=== PATIENT | female | born 1975 | race Caucasian/White ===

== ENCOUNTER 2016-11-05 11:56 | Emergency (ER) | payer BC ==
[~2016-11-05] VITALS: Ht 165.1 cm; Wt 106.8 kg
[~2016-11-05 11:56] MED LIST: CELEXA 20MG20 MG/TAB PO; CYMBALTA 60MG60 MG PO; DAILY MULTIPLE1 T18 PO; MOTRIN 600600 MG/TAB PO; PERCOCET 325 MG1 TA2 PO; PREVACID 30MG30 M1 PO; ZESTRIL; symbalta
[2016-11-05 11:57] VITALS: BP 154/83; TEMP 98.4
[2016-11-05] MEDS ORDERED: ZOLOFT 50MG50 MG PO (12:43)
[2016-11-05] MEDS ORDERED: FERROUS SULFATE65 MG PO (12:44)
[2016-11-05] MEDS ORDERED: MICROGESTIN 1.51 TAB PO (12:44)
[2016-11-05] MEDS ORDERED: VTAMINC250TA PO (12:44)
[2016-11-05 13:18] LABS: BASO # 0.1 (0.0-0.2); BASO % 0.5 % (0.0-2.0); EOS # 0.2 (0.0-0.7); EOS % 1.3 % (0-4.0); GRAN # 9.3 (1.4-6.5); GRAN % 72.4 % (42.2-75.2); HEMATOCRIT 41.5 % (37.0-47.0); HEMOGLOBIN 13.4 g/dl (12.5-16.0); LYMPH # 2.6 (1.2-3.4); LYMPH % 20.5 % (20.0-51.0); MEAN CELL VOLUME 79 fl (80.0-100.0); MEAN CORPUSCULAR HEMOGLOBIN 26 pg (27.0-31.0); MEAN CORPUSCULAR HGB CONC 32 g/dl (33.0-37.0); MEAN PLATELET VOLUME 8.6 fl (7.4-10.4); MONO # 0.6 (0.1-0.6); MONO % 4.8 % (1.7-9.3); PLATELET COUNT 344 K/mm3 (130-400); RED BLOOD COUNT 5.26 M/mm3 (4.10-5.30); REDCELL DISTRIBUTION WIDTH-CV 18.1 % (11.5-14.5); WHITE BLOOD COUNT 12.9 K/mm3 (4.8-10.8)
[2016-11-05 13:23] LABS: ADJUSTED CALCIUM 8.8 mg/dL (8.4-10.2); BILIRUBIN,TOTAL 0.9 mg/dL (0.0-1.0); CALCIUM 8.8 mg/dL (8.4-10.2); CREATININE, serum 0.65 mg/dL (0.52-1.25); PH 6 (5-8); POTASSIUM 3.7 mmol/L (3.4-5.0); TOTAL PROTEIN 7.7 gm/dL (6.4-8.2); URINE APPEARANCE Hazy; URINE BACTERIA None Seen /hpf; URINE BILIRUBIN Negative (NEGATIVE); URINE BLOOD 2+ (NEGATIVE); URINE COLOR Yellow; URINE GLUCOSE Negative (NEGATIVE); URINE KETONE Negative (NEGATIVE); URINE UROBILINOGEN Negative (NEGATIVE)
[2016-11-05] MEDS ORDERED: MACROBID 1100 MG/CAP PO (14:09)
[2016-11-05] MEDS ORDERED: FLEXERIL 1010 MG/TAB PO (14:09)
[2016-11-05 14:57] VITALS: PULSE 74
== END 2016-11-05 14:58 | disposition home or self-care (01) ==
LOC: COL.ER 11:56
PROVIDERS: Nurse Practitioner
DX: N39.0 Urinary tract infection, site not specified (principal); M79.1 Myalgia; Z87.442 Personal history of urinary calculi
CPT/HCPCS: J1885; J3360

== ENCOUNTER 2017-09-17 00:51 | Emergency (ER) | payer BC ==
[~2017-09-17 00:51] MED LIST changes: +FERROUS SULFATE65 MG PO; +FLEXERIL 1010 MG/TAB PO; +MACROBID 1100 MG/CAP PO; +MICROGESTIN 1.51 TAB PO; +VTAMINC250TA PO; +ZOLOFT 50MG50 MG PO
[2017-09-17 00:54] VITALS: TEMP 98
[2017-09-17 01:43] LABS: BASO # 0.1 (0.0-0.2); BASO % 0.6 % (0.0-2.0); EOS # 0.4 (0.0-0.7); EOS % 2.9 % (0-4.0); GRAN # 8.4 (1.4-6.5); GRAN % 61.8 % (42.2-75.2); HEMATOCRIT 36.5 % (37.0-47.0); HEMOGLOBIN 12.1 g/dl (12.5-16.0); LYMPH # 3.9 (1.2-3.4); LYMPH % 28.7 % (20.0-51.0); MEAN CELL VOLUME 79 fl (80.0-100.0); MEAN CORPUSCULAR HEMOGLOBIN 26 pg (27.0-31.0); MEAN CORPUSCULAR HGB CONC 33 g/dl (33.0-37.0); MEAN PLATELET VOLUME 8.6 fl (7.4-10.4); MONO # 0.7 (0.1-0.6); MONO % 5.3 % (1.7-9.3); PLATELET COUNT 338 K/mm3 (130-400); RED BLOOD COUNT 4.63 M/mm3 (4.10-5.30); REDCELL DISTRIBUTION WIDTH-CV 15.5 % (11.5-14.5)
[2017-09-17 01:51] LABS: ALANINE AMINOTRANSFERASE 29 U/L (9-52); ALBUMIN 3.2 gm/dL (3.5-5.0); ALKALINE PHOSPHATASE 69 U/L (50-136); ANION GAP 11 mmol/L (7-16); AST,SGOT 16 U/L (15-37); BILIRUBIN,TOTAL 0.3 mg/dL (0.0-1.0); BLOOD UREA NITROGEN 14 mg/dL (7-17); CALCIUM 8.5 mg/dL (8.4-10.2); CARBON DIOXIDE 28 mmol/L (22-30); CHLORIDE 104 mmol/L (98-107); CREATININE, serum 0.67 mg/dL (0.52-1.25); GLUCOSE 101 mg/dL (74-106); POTASSIUM 3.2 mmol/L (3.4-5.0); SODIUM 142 mmol/L (137-145); TOTAL PROTEIN 6.4 gm/dL (6.4-8.2)
[2017-09-17 02:03] LABS: TROPONIN-I < 0.012 ng/mL (0.000-0.034)
[2017-09-17] MEDS ORDERED: ZITHROMAX 250M250 MG PO (03:14)
[2017-09-17 03:28] VITALS: BP 124/73; PULSE 80
== END 2017-09-17 03:30 | disposition home or self-care (01) ==
LOC: COL.ER 00:51
PROVIDERS: Nurse Practitioner
DX: J18.9 Pneumonia, unspecified organism (principal); I10 Essential (primary) hypertension; F32.9 Major depressive disorder, single episode, unspecified; Z98.890 Other specified postprocedural states
CPT/HCPCS: Q9967

== ENCOUNTER → 2018-02-15 | Outpatient (CLI) | payer BC ==
[~2018-02-15] MED LIST changes: +ZITHROMAX 250M250 MG PO
== END ==
LOC: MC.RAD 11:24
DX: Z12.31 Encounter for screening mammogram for malignant neoplasm of breast (principal)

== ENCOUNTER → 2018-04-26 | Outpatient (CLI) | payer BC | LOC: COL.CARD 13:55 | DX: I10 Essential (primary) hypertension (principal) ==

== ENCOUNTER → 2019-12-25 | Outpatient (CLI) | payer BC | LOC: ZCOL.LAB 14:02 | DX: R19.7 Diarrhea, unspecified (principal); M79.10 Myalgia, unspecified site; R53.83 Other fatigue; Z20.828 Contact with and (suspected) exposure to other viral communicable diseases ==

== ENCOUNTER 2020-01-20 21:30 | Emergency (ER) | payer BC ==
[~2020-01-20] VITALS: Ht 165.1 cm; Wt 109.1 kg
[2020-01-20 21:35] VITALS: BP 143/86; TEMP 99.3
[2020-01-20 22:24] VITALS: PULSE 66
== END 2020-01-20 22:24 | disposition home or self-care (01) ==
LOC: COL.ER 21:30
DX: H60.91 Unspecified otitis externa, right ear (principal)

== ENCOUNTER 2020-01-24 11:10 | Emergency (ER) | payer BC ==
[~2020-01-24] VITALS: Ht 165.1 cm; Wt 109.1 kg
[2020-01-24 11:32] VITALS: BP 139/93; TEMP 99.3
[2020-01-24] MEDS ORDERED: CILOXAN .3% EY2.5 ML OT (11:39)
[2020-01-24] MEDS ORDERED: DECADRON OPHTH D5 ML OT (11:40)
[2020-01-24 12:15] VITALS: PULSE 80
== END 2020-01-24 12:09 | disposition home or self-care (01) ==
LOC: COL.ER 11:10
DX: H60.91 Unspecified otitis externa, right ear (principal)

== ENCOUNTER 2020-11-21 12:55 | Emergency (ER) | payer BC ==
[~2020-11-21] VITALS: Ht 162.6 cm; Wt 101.8 kg
[~2020-11-21 12:55] MED LIST changes: +CILOXAN .3% EY2.5 ML OT; +DECADRON OPHTH D5 ML OT
[2020-11-21 13:13] VITALS: TEMP 97.8
[2020-11-21] MEDS ORDERED: ADDERALL15 MG PO (13:18)
[2020-11-21] MEDS ORDERED: BRINTELLIX10 PO (13:18)
[2020-11-21] MEDS ORDERED: SINGULAIR 110 MG/TAB PO (13:18)
[2020-11-21 14:04] LABS: BASO # 0.1 (0.0-0.2); BASO % 0.5 % (0.0-2.0); EOS # 0.3 (0.0-0.7); EOS % 1.9 % (0-4.0); GRAN # 9.2 (1.4-6.5); GRAN % 70.9 % (42.2-75.2); HEMOGLOBIN 13.5 g/dl (12.5-16.0); LYMPH # 2.8 (1.2-3.4); LYMPH % 21.6 % (20.0-51.0); MEAN CELL VOLUME 82 fl (80.0-100.0); MEAN CORPUSCULAR HEMOGLOBIN 28 pg (27.0-31.0); MEAN CORPUSCULAR HGB CONC 34 g/dl (33.0-37.0); MEAN PLATELET VOLUME 8.5 fl (7.4-10.4); MONO # 0.6 (0.1-0.6); MONO % 4.5 % (1.7-9.3); PLATELET COUNT 346 K/mm3 (130-400); RED BLOOD COUNT 4.87 M/mm3 (4.10-5.30); REDCELL DISTRIBUTION WIDTH-CV 14.1 % (11.5-14.5)
[2020-11-21 14:11] LABS: ALBUMIN 3.6 gm/dL (3.5-5.0); BILIRUBIN,TOTAL 0.4 mg/dL (0.0-1.0); CALCIUM 9.2 mg/dL (8.4-10.2); CREATININE, serum 0.73 (0.52-1.25); POTASSIUM 3.4 mmol/L (3.4-5.0); TOTAL PROTEIN 6.8 gm/dL (6.4-8.2)
[2020-11-21] MEDS ORDERED: PRINIVIL10 MG PO (14:32)
[2020-11-21 14:40] VITALS: BP 144/88; PULSE 75
== END 2020-11-21 14:40 | disposition home or self-care (01) ==
LOC: COL.ER 12:55
PROVIDERS: Physician Assistant
DX: R03.0 Elevated blood-pressure reading, without diagnosis of hypertension (principal); F32.9 Major depressive disorder, single episode, unspecified; F90.9 Attention-deficit hyperactivity disorder, unspecified type; Z79.899 Other long term (current) drug therapy

== ENCOUNTER 2022-03-20 03:20 | Observation (INO) | payer BC ==
[2022-03-20] VITALS (13 sets, daily range): BP systolic 13–154; BP diastolic 64–84; PULSE 57–81; TEMP 98.2–98.7
[~2022-03-20] VITALS: Ht 165.1 cm; Wt 101.6 kg
[~2022-03-20 03:20] MED LIST changes: +ADDERALL15 MG PO; +BRINTELLIX10 PO; +PRINIVIL10 MG PO; +SINGULAIR 110 MG/TAB PO
[2022-03-20 03:55] LABS: BASO # 0.1 K/mm3 (0.0-0.2); BASO % 0.5 % (0.0-2.0); EOS # 0.3 K/mm3 (0.0-0.7); EOS % 2.1 % (0.0-4.0); GRAN # 11.2 K/mm3 (1.4-6.5); GRAN % 75.8 % (42.2-75.2); HEMATOCRIT 41.9 % (37.0-47.0); LYMPH # 2.3 K/mm3 (1.2-3.4); LYMPH % 15.5 % (20.0-51.0); MEAN CELL VOLUME 82 fl (80.0-100.0); MEAN CORPUSCULAR HEMOGLOBIN 28 pg (27-31); MEAN CORPUSCULAR HGB CONC 33 g/dl (33.0-37.0); MEAN PLATELET VOLUME 8.3 fl (7.4-10.4); MONO # 0.8 K/mm3 (0.1-0.6); MONO % 5.6 % (1.7-9.3); PLATELET COUNT 347 K/mm3 (130-400); RED BLOOD COUNT 5.09 M/mm3 (4.10-5.30); REDCELL DISTRIBUTION WIDTH-CV 13.4 % (11.5-14.5)
[2022-03-20 04:02] LABS: COLLECTION METHOD CLEAN CATCH
[2022-03-20 04:07] LABS: ALBUMIN 3.5 gm/dL (3.5-5.0); BILIRUBIN,TOTAL 0.4 mg/dL (0.2-1.2); CALCIUM 9.1 mg/dL (8.4-10.2); CREATININE, serum 0.78 mg/dL (0.57-1.11); POTASSIUM 3.6 mmol/L (3.5-4.5)
[2022-03-20 04:23] LABS: MUCOUS Present (NOT PRESENT); SQUAMOUS EPITHELIAL 0-2 /hpf (0-10); URINE BACTERIA None Seen /hpf (NONE SEEN)
[2022-03-20 04:24] LABS: PH 6.5 (5.0-8.5); URINE APPEARANCE Clear (CLEAR/HAZY); URINE COLOR Yellow (YELLOW); URINE GLUCOSE Negative (NEGATIVE); URINE KETONE Negative (NEGATIVE); URINE NITRATE Negative (NEGATIVE); URINE PROTEIN(semi-quant) Negative (NEGATIVE); URINE UROBILINOGEN 0.2 E.U/dL (0.2-1.0)
[2022-03-20 04:25] LABS: URINE BLOOD TRACE-LYSED (NEGATIVE)
[2022-03-20] MEDS ORDERED: ZYRTEC 10MG10 MG (07:48)
[2022-03-20] MEDS ORDERED: REXULTI1 MG (07:48)
[2022-03-20] MEDS ORDERED: TOPROL XL 25MG25 MG (07:48)
[2022-03-20] MEDS ORDERED: ADDERALL20 MG (07:48)
[2022-03-20] MEDS ORDERED: MOTRIN 600600 MG/TAB PO (12:11)
[2022-03-20] MEDS ORDERED: NORCO 325 MG-51 TAB PO (12:11)
[2022-03-20] MEDS ORDERED: FLAGYL500 MG PO (12:12)
[2022-03-20] MEDS ORDERED: CIPRO 500MG TA500 MG PO (12:12)
--- NOTE | 2022-03-20 13:16 | NUR ---
Patient was brought up from surgery and geothermal installerhetal [facility]ocaneg[facility] and visited briefly while family was in room.
--- NOTE | 2022-03-20 13:16 | NUR ---
Patient was brought up from surgery and energy advisorhetal bocanegra and visited briefly while family was in room.
--- NOTE | 2022-03-20 20:00 | NUR ---
PT READY FOR DISCHARGE. REVIEWED DISCHARGE INSTRUCTION WITH PATIENT AND SPOUSE. REMOVED INT FROM LEFT AC, ANGIOCATH INTACT. PT SENT WITH [email or web address] TAKE HOME PACK #4. TAKES NOW DOSE OF CIPRO 500MG PO AND FLAGYL 500MG PO AT THIS TIME. ROBOTIC SITES DRY/GLUED. PT HAS EATEN, VOIDED AND AMBULATED. PAIN IS CONTROLLED.
--- NOTE | 2022-03-20 20:00 | NUR ---
PT READY FOR DISCHARGE. REVIEWED DISCHARGE INSTRUCTION WITH PATIENT AND SPOUSE. REMOVED INT FROM LEFT AC, ANGIOCATH INTACT. PT SENT WITH [facility] TAKE HOME PACK #4. TAKES NOW DOSE OF CIPRO 500MG PO AND FLAGYL 500MG PO AT THIS TIME. ROBOTIC SITES DRY/GLUED. PT HAS EATEN, VOIDED AND AMBULATED. PAIN IS CONTROLLED.
--- NOTE | 2022-03-20 20:15 | NUR ---
PT DISCHARGED VIA W/C TO PRIVATE CAR. COPY OF DISCHARGE INSTRUCTIONS SENT WITH PT. NORCO 5/325MG #4 HOME PACK SENT WITH PATIENT. PERSONAL BELONGINGS SENT WITH PATIENT WELL. PT OFFERS NO CONCERNS.
== END 2022-03-20 20:15 | disposition home or self-care (01) ==
LOC: COL.ER 03:20 → SURG 06:31
PROVIDERS: Emergency Medicine; ADMIT Surgery
DX: K80.10 Calculus of gallbladder with chronic cholecystitis without obstruction (principal); I10 Essential (primary) hypertension; Z79.899 Other long term (current) drug therapy
CPT/HCPCS: G0378; J0690; J0696; J1100; J1170; J1885; J2405; J2704; J3010; J7120; Q9967

== ENCOUNTER 2023-07-08 08:24 | Emergency (ER) | payer BC ==
[~2023-07-08] VITALS: Ht 165.1 cm; Wt 109.1 kg
[~2023-07-08 08:24] MED LIST changes: +ADDERALL20 MG; +CIPRO 500MG TA500 MG PO; +FLAGYL500 MG PO; +NORCO 325 MG-51 TAB PO; +REXULTI1 MG; +TOPROL XL 25MG25 MG; +ZYRTEC 10MG10 MG
[2023-07-08 08:27] VITALS: TEMP 99.9
[2023-07-08] MEDS ORDERED: Ibuprofen 400 MG TAB PO ONE (09:00)
[2023-07-08 10:12] VITALS: BP 118/77; PULSE 84
== END 2023-07-08 10:15 | disposition home or self-care (01) ==
LOC: COL.ER 08:24
DX: R50.9 Fever, unspecified (principal); R00.0 Tachycardia, unspecified; R51.9 Headache, unspecified; R61 Generalized hyperhidrosis; Z88.6 Allergy status to analgesic agent